=== PATIENT | male | born 1985 | race Caucasian/White ===

== ENCOUNTER 2020-07-29 09:30 | Emergency (ER) | payer SELFPAY ==
[2020-07-29 09:43] VITALS: TEMP 98.1; BMI 24.3
[2020-07-29] MEDS ORDERED: levETIRAcetam 500 MG TABLET (FP) PO ONE ×2 (10:58→11:01)
[2020-07-29 12:15] VITALS: BP 98/62; PULSE 62
== END 2020-07-29 12:15 | disposition home or self-care (01) ==
LOC: JER 09:30
DX: G40.89 Other seizures (principal)
CPT/HCPCS: 93005; 93010; 99283-25